=== PATIENT | male | born 2000 | race African-American/Black ===

== ENCOUNTER 2022-08-26 20:29 | Emergency (ER) | payer OTHER ==
[~2022-08-26] VITALS: Ht 180.3 cm; Wt 84.1 kg
[2022-08-26] MEDS ORDERED: NS 1,000 ML IV ONE (21:10)
[2022-08-26] MEDS ORDERED: MORPHINE 4 MG/ML 1ML VIAL IV ONE (21:10)
[2022-08-26] MEDS ORDERED: BOOSTRIX VACCINE (TETANUS/DIPHTH/ACEL. PERTUSSIS) 0.5ML SYR IM.IMMUN ONE (21:50)
[2022-08-26] MEDS ORDERED: LIDOCAINE 2% MDV 20ML VIAL SC ONE (23:25)
[2022-08-26] MEDS ORDERED: NEOSPORIN TOP OINT 15GM TOP ONE (23:25)
[2022-08-27] MEDS ORDERED: fentaNYL 100 MCG/2 ML INJECTION IV ONE (00:05)
[2022-08-27 02:48] VITALS: BP 135/66; TEMP 98.3; O2SAT 97
== END 2022-08-27 02:51 | disposition home or self-care (01) ==
LOC: M ED 20:29
DX: S01.111A Laceration without foreign body of right eyelid and periocular area, initial encounter (principal); S20.211A Contusion of right front wall of thorax, initial encounter; V29.888A Rider (driver) (passenger) of other motorcycle injured in other specified transport accidents, initial encounter
CPT/HCPCS: 12013; 70450; 70486; 71250; 72125; 73130; 96374; 96375; 99285; J3010